=== PATIENT | male | born 1955 | race Caucasian/White ===

== ENCOUNTER 2017-07-09 05:44 | Day surgery (SDC) | payer OTHER ==
[~2017-07-09] VITALS: Ht 193 cm; Wt 146.5 kg
[~2017-07-09 05:44] MED LIST: Balance B-501 EACH PO; CALCIUM WITH V1 EACH PO; CHOL10002 PO; CYAN500 PO; FLONASE ALLERG9.9 ML; Hair, Skin & N1 EACH PO; IBUPROFEN PO; OMEGA 3 PO; PROSTATE PLUS PO; SELENIUM200 MC1 PO; SELENIUM200 MC2 PO; SUDAFED PO; Saw Palmetto160 MG PO; XYZAL5 MG PO; ZESTORETIC 20-121 EA PO; [UNRECOGNIZED DRUG - OTHER] PO
== END 2017-07-09 22:45 | disposition home or self-care (01) ==
LOC: ORSCMMR 05:44
PROVIDERS: Surgery
PROC: 0WUF0JZ Supplement Abdominal Wall with Synthetic Substitute, Open Approach (ICD-10-PCS; principal; 2017-07-09 07:30)
DX: K42.0 Umbilical hernia with obstruction, without gangrene (principal); I10 Essential (primary) hypertension; E66.01 Morbid (severe) obesity due to excess calories; Z68.39 Body mass index [BMI] 39.0-39.9, adult; Z79.899 Other long term (current) drug therapy
CPT/HCPCS: C1781; J0330; J0690; J1100; J2250; J2405; J2710; J3010; J7120

== ENCOUNTER 2019-02-11 10:10 | Day surgery (SDC) | payer OTHER ==
[~2019-02-11] VITALS: Ht 193 cm; Wt 140.5 kg
[~2019-02-11 10:10] MED LIST changes: +ALLEGRA ALLERG180 MG PO; +CYCL10 PO
--- NOTE | 2019-02-11 12:29 | NUR ---
PT ADMITTED TO [facility]. AGREES WITH PLANNED PROCEDURE. STATES HE TOLERATED BOWEL PREP AND LAST MC CLEAR.
--- NOTE | 2019-02-11 12:34 | NUR ---
02/11/19 1234 Nhan Aguirre History, Chart, Medications and Allergies reviewed before start of procedure.MONITOR INTACT WITH CONTINUOUS PULSE OXIMETRY AND INTERMITTENT BP.3-LEAD EKG REVIEWED WITH PHYSICIAN PRIOR TO START OF PROCEDURE.O2 VIA N/C INTACT THROUGHOUT SEDATION/PROCEDURE. Patient confirms NPO status and agrees with scheduled surgery.See Anesthesia record.
== END 2019-02-11 14:52 | disposition home or self-care (01) ==
LOC: ORSCMMR 10:10 → ORD 11:30 → ORSCMMR 12:00 → ORD 12:00 → ORSCMMR 14:52
PROVIDERS: Internal Medicine Gastroenterology
PROC: 0DBK8ZX Excision of Ascending Colon, Via Natural or Artificial Opening Endoscopic, Diagnostic (ICD-10-PCS; principal; 2019-02-11 12:00)
DX: Z12.11 Encounter for screening for malignant neoplasm of colon (principal); K63.5 Polyp of colon; K57.30 Diverticulosis of large intestine without perforation or abscess without bleeding; K64.8 Other hemorrhoids; I10 Essential (primary) hypertension; E78.5 Hyperlipidemia, unspecified; G47.33 Obstructive sleep apnea (adult) (pediatric); E66.9 Obesity, unspecified; Z68.38 Body mass index [BMI] 38.0-38.9, adult; Z79.899 Other long term (current) drug therapy; Z87.891 Personal history of nicotine dependence
CPT/HCPCS: 88305; J2704; J7120

== ENCOUNTER 2022-05-15 13:25 | Emergency (ER) | payer OTHER, BC ==
[~2022-05-15] VITALS: Ht 193 cm; Wt 156.5 kg
== END 2022-05-15 14:56 | disposition home or self-care (01) ==
LOC: ER 13:25
DX: S61.412A Laceration without foreign body of left hand, initial encounter (principal); W26.0XXA Contact with knife, initial encounter; Z79.899 Other long term (current) drug therapy; Z87.891 Personal history of nicotine dependence
CPT/HCPCS: 12001; 99282-25

== ENCOUNTER 2022-05-25 08:27 | Emergency (ER) | payer OTHER, BC ==
[~2022-05-25] VITALS: Ht 193 cm; Wt 156.5 kg
== END 2022-05-25 09:23 | disposition home or self-care (01) ==
LOC: ER 08:27
DX: Z48.02 Encounter for removal of sutures (principal); Z79.899 Other long term (current) drug therapy; Z87.891 Personal history of nicotine dependence
CPT/HCPCS: 99281